=== PATIENT | female | born 1960 | race Caucasian/White ===

== ENCOUNTER → 2018-02-06 20:47 | Outpatient (CLI) | payer MEDICAID | END | disposition home or self-care (01) | LOC: D.MAMMO 01-24 14:00 | DX: Z12.31 Encounter for screening mammogram for malignant neoplasm of breast (principal) ==

== ENCOUNTER → 2018-03-06 18:12 | Outpatient (CLI) | payer MEDICAID | END | disposition home or self-care (01) | LOC: D.MAMMO 13:30 | DX: R92.8 Other abnormal and inconclusive findings on diagnostic imaging of breast (principal) ==

== ENCOUNTER → 2018-03-20 18:21 | Outpatient (CLI) | payer MEDICAID | END | disposition home or self-care (01) | LOC: D.MAMMO 08:00 | DX: R92.8 Other abnormal and inconclusive findings on diagnostic imaging of breast (principal) ==

== ENCOUNTER 2018-04-17 05:45 | Day surgery (SDC) | payer MEDICAID ==
[2018-04-16 10:00] LABS: BASOPHILS 0.6 % (0-2); EOSINOPHILS 1.2 % (0-7); HEMATOCRIT 45.8 % (36.0-48.0); HEMOGLOBIN 15.7 g/dL (12-16); IMMATURE GRANULOCYTES 0.3 % (0-5); LYMPHOCYTES 27.5 % (15-50); MCH 30.1 pg (26.0-34.0); MCHC 34.3 g/dL (31.0-37.0); MCV 87.7 fL (80.0-100.0); MEAN PLATELET VOLUME 9.2 fL (7.4-10.4); MONOCYTES 8.4 % (2-11); PLATELET COUNT 324 10x3/uL (130-400); RBC 5.22 10x6/uL (4.00-5.40); RDW 13.7 % (11.5-14.5); WBC 9.4 10x3/uL (4.8-10.8)
[2018-04-16 10:08] LABS: ANION GAP 11.1 mmol/L (8-16); CALCIUM 8.9 mg/dL (8.5-10.1); CARBON DIOXIDE 28.4 mmol/L (21.0-32.0); POTASSIUM - SERUM 3.5 mmol/L (3.5-5.1)
[2018-04-16 10:09] LABS: APTT 26.5 SECONDS (22.8-39.4); INR 0.96 (0.85-1.17); PROTIME 12.4 SECONDS (11.6-15.0)
[~2018-04-17] VITALS: Ht 162.6 cm; Wt 73.5 kg
--- NOTE | ~2018-04-17 | OP ---
PATIENT NAME: YASHIRA WORRELL MEDICAL RECORD: [id number] :60 LOCATION:D.OPS ADMISSION DATE: SURGEON: DANIEL WALLIS MD DATE OF OPERATION: 04/17/2018 PREOPERATIVE DIAGNOSES: 1. Ductal carcinoma in situ of the right breast. 2. Right breast cyst. 3. Chronic obstructive pulmonary disease. 4. Hypercholesterolemia. POSTOPERATIVE DIAGNOSES: 1. Ductal carcinoma in situ of the right breast. 2. Right breast cyst. 3. Chronic obstructive pulmonary disease. 4. Hypercholesterolemia. PROCEDURE: 1. Needle localized right lumpectomy. 2. [place] lymph node biopsy of the right axilla. SURGEON: Daniel Wallis MD REPORT OF PROCEDURE: Preoperatively, the patient underwent lymphoscintigraphy and needle localization for the mass in the right upper outer quadrant. The patient was then taken to the operating room and her right upper extremity, axilla, and right breast were all prepped and draped in sterile fashion. A skin incision was made in the superior lateral aspect of the fold of the breast on the right side. Electrocautery was used to dissect through the subcutaneous tissues. We ended eviscerating the wire through our incision site. We took out a large core tissue from the right upper outer quadrant, essentially performing a quadrantectomy. This was done because there were a couple of places of abnormality noted on her preoperative workup, which were concerning for possible DCIS and cystic lesions. Once we had the entire specimen removed, it was marked appropriately and sent off to radiology where they confirmed that the specimen appeared to be adequate. The area was inspected closely and any sign of any bleeding was treated with 3-0 Vicryl ties or electrocautery. We then inspected the axilla with the Neoprobe and were able to approach this through our current incision. We dissected down to the right axilla and once inside the axilla, we were able to find what appeared to be 2 or 3 enlarged lymph nodes and had high readings. The highest reading was approximately 275. Once we took these 2 lymph nodes out, then we inspected the rest of the axilla and there was no sign of any significant radiotracer uptake. We irrigated out both wounds with sterile water and assured there was no active bleeding. The subcutaneous tissues were then reapproximated with interrupted 3-0 Vicryl and the skin was closed with running subcutaneous 5-0 Monocryl. We then dressed the wound with Dermabond. COMPLICATIONS: None. CONDITION: Stable. ANESTHESIA: General endotracheal and local. BLOOD LOSS: 30 mL. OPERATIVE REPORT [id number] LEXMarioYASHIRAVAHE LAWSON TRANSINT:[id number] Voice Confirmation ID: [id number] DOCUMENT ID: [id number] DANIEL WALLIS MD at 1409 CC: KAYCEE NOLASCO [id number] DICTATION DATE: 04/17/18 1539 CORK PAINTER AND GRADER: 04/17/18 1551 [facility] [place] 04/17/18 [facility] [address] [place] [address]
[~2018-04-17 05:45] MED LIST: IPRAT-ALBUT 0.5-3 ML UPD; OMEPRAZOLE20 M1 PO; PEPCID AC20 MG PO; VENTOLIN HFA18 GM INH; ZOCOR20 MG PO; ZOFRAN4 MG PO
[2018-04-17 06:44] VITALS: BP 110/71; Ht 162.6 cm; Wt 73.5 kg
[2018-04-17] MEDS ORDERED: NORCO 10-325 TA1 TAB PO (15:34)
== END 2018-04-17 17:52 | disposition home or self-care (01) ==
LOC: D.OPS 05:45 → D.NM 07:30 → D.PAN 07:30 → D.OPS 07:30 → D.NM 09:00 → D.OPS 17:52
PROVIDERS: Anesthesiology; Surgery
DX: D05.81 Other specified type of carcinoma in situ of right breast (principal); N60.01 Solitary cyst of right breast; N60.21 Fibroadenosis of right breast; J44.9 Chronic obstructive pulmonary disease, unspecified; E78.00 Pure hypercholesterolemia, unspecified; Z01.812 Encounter for preprocedural laboratory examination

== ENCOUNTER 2018-11-11 10:30 | Outpatient (CLI) | payer MEDICAID ==
[~2018-11-11 10:30] MED LIST changes: +NORCO 10-325 TA1 TAB PO
== END 2018-11-11 11:00 | disposition home or self-care (01) ==
LOC: D.MAMMO 10:30
DX: Z85.3 Personal history of malignant neoplasm of breast (principal)

== ENCOUNTER 2019-02-10 13:00 | Outpatient (CLI) | payer MEDICAID ==
[2018-04-17 06:44] VITALS: BMI 27.8
== END 2019-02-10 13:30 | disposition home or self-care (01) ==
LOC: D.MAMMO 13:00
PROVIDERS: ATTEND Surgery
DX: N60.01 Solitary cyst of right breast (principal); D05.11 Intraductal carcinoma in situ of right breast

== ENCOUNTER 2019-05-20 08:15 | Inpatient (IN) | payer MEDICAID ==
[2019-05-20] VITALS (7 sets, daily range): BP systolic 100–139; BP diastolic 48–78; Ht 162.6 cm; Wt 72.7 kg
[~2019-05-20] VITALS: Ht 162.6 cm; Wt 72.7 kg
[2019-05-20] MEDS ORDERED: TAMOXIFEN CITRA20 MG PO (08:22)
[2019-05-20] MEDS ORDERED: ZOCOR80 MG PO (08:22)
[2019-05-20] MEDS ORDERED: BAYER CHEWABLE81 MG PO (08:34)
[2019-05-20 08:47] LABS: BASOPHILS 0.5 % (0-2); EOSINOPHILS 2.7 % (0-7); HEMATOCRIT 42.3 % (36.0-48.0); HEMOGLOBIN 13.9 g/dL (12-16); IMMATURE GRANULOCYTES 0.1 % (0-5); LYMPHOCYTES 18.5 % (15-50); MCH 29.7 pg (26.0-34.0); MCHC 32.9 g/dL (31.0-37.0); MCV 90.4 fL (80.0-100.0); MEAN PLATELET VOLUME 8.6 fL (7.4-10.4); MONOCYTES 9.1 % (2-11); NEUTROPHILS 69.1 % (40-80); RBC 4.68 10x6/uL (4.00-5.40); RDW 13.4 % (11.5-14.5); WBC 8.4 10x3/uL (4.8-10.8)
[2019-05-20 08:56] LABS: APTT 24.9 SECONDS (22.8-39.4); INR 1.01 (0.85-1.17); PROTIME 12.8 SECONDS (11.6-15.0)
[2019-05-20 08:57] LABS: CALC OSMOLALITY 270 mosm/kg (275-300); CALCIUM 8.3 mg/dL (8.5-10.1); CARBON DIOXIDE 26.2 mmol/L (21.0-32.0); CHLORIDE - SERUM 101 mmol/L (98-107); CREATININE - SERUM 0.8 mg/dL (0.6-1.3); GLUCOSE 125 mg/dL (74-106); POTASSIUM - SERUM 3.8 mmol/L (3.5-5.1); SODIUM 136 mmol/L (136-145); UREA NITROGEN 8 mg/dL (7-18); eGFR NON AFRICAN AMERICAN 78 mL/min (90-120)
[2019-05-20 09:03] LABS: PLATELET COUNT 246 10x3/uL (130-400)
[2019-05-20 09:14] LABS: ALBUMIN 3.5 g/dL (3.4-5.0); ALKALINE PHOSPHATASE 60 U/L (46-116); ALT (SGPT) 37 U/L (10-68); BILIRUBIN - TOTAL 0.91 mg/dL (0.2-1.3); CKMB 2.2 U/L (0.0-3.6); CREATINE KINASE 109 UL (21-215); PRO BNP 57 pg/mL (0-125); PROTEIN - SERUM 7.4 g/dL (6.4-8.2); TROPONIN-I < 0.017 ng/mL (0.000-0.060)
--- NOTE | 2019-05-20 09:27 | NUR ---
AMB PT TO BR. PT BECAME VERY DYSPNIC AND SATS DROPPED TO 84-86% ON RA. RTND TO ROOM AND PLACED ON 2 L PNC AND PT QUICKLY IMPROVED TO 95 %
--- NOTE | 2019-05-20 10:28 | NUR ---
REPORT CALLED TO CHAR MARTINEZ
--- NOTE | 2019-05-20 10:45 | NUR ---
TRANSPORTED TO ROOM #1207, CONDITION STABLE
--- NOTE | 2019-05-20 10:50 | NUR ---
RECEIVED PT TO ROOM 1207 VIA STRETCHER, PT WAS ABLE TO AMBULATE FROM STRETCHER TO BED WITH STEADY GATE. PT DENIES ANY NEEDS OR DISCOMFORTS AT THIS TIME. ORIENTED PT TO ROOM AND CALL LIGHT, WILL ASSESS PT AND START PLAN OF CARE.
[2019-05-20] MEDS ORDERED: PROTONIX40 MG PO (10:55)
--- NOTE | 2019-05-20 14:47 | NUR ---
CALLED DR. NOLASCO'S OFFICE REGARDING PT HOME MEDS. WAITING ON THEM TO CALL BACK WITH ORDERS.
--- NOTE | 2019-05-20 16:15 | NUR ---
PER DR. CONSTANCE MCKEON TO START HOME MEDICATIONS.
--- NOTE | 2019-05-20 16:30 | NUR ---
FIRST UNIT OF PRBCS DONE INFUSING, VITAL SIGNS STABLE, GAVE 20MG OF LASIX. 1644- SECOND UNIT OF PRBC STARTED INFUSING. PT DENIES ANY NEEDS AT THIS TIME. CALL LIGHT IN REACH, NAD NOTED, WILL CONTINUE TO MONITOR.
--- NOTE | 2019-05-20 19:25 | NUR ---
PT SITTING UP IN BED ON PHONE. DENIES NEEDS AT THIS TIME. BED IN LOW SIDE RAILS X2. CL IN REACH. A/O X4. LUNGS DIMINISHED. BOWEL ACTIVE X4. RESP EVEN AND UNLABORED. PRODUCTIVE COUGH WITH YELLOW SPUTUM. PT ON 2L OF O2 VIA NC. WILL CONTINUE TO MONITOR.
--- NOTE | 2019-05-20 21:36 | MORECARE ---
CASE MANAGEMENT DISCHARGE SUMMARY PATIENT: YASHIRA WORRELL RENNY UNIT: [id number] ADM DATE: 05/20/19 AGE: 58 : 60 SEX: F ROOM/BED: D.1207 AUTHOR: LANEY,DOC PHYSICIAN: REFERRING PHYSICIAN: KAYCEE NOLASCO MD DATE OF SERVICE: 05/20/19 Discharge Plan Patient Name: YASHIRA WORRELL Facility: [facility]:[place] : 1960 Planned Disposition: Home Anticipated Discharge Date: Discharge Date: Expected LOS: Initial Reviewer: [id number] Initial Review Date: 05/20/2019 Generated: 05/20/19 10:36 pm Comments DCP- Discharge Planning Updated by [id number]: Emili Swain on 05/20/19 8:[address] Patient Name: YASHIRA WORRELL Admission Status: Elective Accout number: [id number] Admission Date: 05-20-2019 : 1960 Admission Diagnosis: Attending: KAYCEE NOLASCO Current LOS: 1 Anticipated DC Date: Planned Disposition: Home Primary Insurance: MEDICAID [place] Discharge Planning Comments: CM met with patient to complete initial dc planning assessment. CM educated patient on the CM role and verbal consent given by patient to complete assessment. Patient lives at home with her elderly parents where she is independent with her care and cares for her parents. At discharge patient plans to return home and feels this is a safe discharge. CM discussed availability of home health, rehab services, and medical equipment. Patient needs nebulizer she states she has been using her father's and it has stopped working. [facility] signed for [employer]. Patient denied known discharge needs at this time. CM will continue to follow and will assist as needed with dc plans/needs. Regulatory Technician: Emili Swain DCPIA - Discharge Planning Initial Assessment Updated by [email or web address]: Emili Swain on 05/20/19 9:32 pm * Is the patient Alert and Oriented? Yes * How many steps to enter\exit or inside your home? * PCP CONSTANCE * [facility] [address] * Preadmission Environment Home with Family * ADLs Independent * Equipment None * List name and contact numbers for known caregivers / representatives who currently or will assist patient after discharge: DEEJAY HERNANDEZ - MOTHER- [phone] * Verbal permission to speak to the caregivers and representatives has been obtained from the patient. Yes * Community resources currently utilized None * Additional services required to return to the preadmission environment? No * Can the patient safely return to the preadmission environment? Yes * Has this patient been hospitalized within the prior 30 days at any hospital? No Coverage Notice Reviewer: [email or web address] Genevieve Swain Notice Issued Date-Time: 05/20/2019 17:00 Notice Type: Patient Choice Letter Notice Delivered To: Patient Relationship to Patient: Self Vessel Scrapper Helper Name: Delivery Method: HAND - Hand Delivered Thania Days: Prior Verbal Notification: Recipient Understood Notice: Yes Recipient Signature: Yes Med Rec Note Co-signed by Attending: Coverage Notice Comment: Patient Name: YASHIRA WORRELL Page [phone] at 2136 All edits/amendments must be made on the electronic document DICTATION DATE: 05/20/192135 VESSEL SCRAPPER HELPER: DREA 05/20/192135 RPT#: [id number] DC DATE: STATUS: ADM IN [facility] [address] [place] [address] END OF REPORT
[2019-05-21 01:17] VITALS: BP 113/65
--- NOTE | 2019-05-21 04:42 | NUR ---
I have reviewed this patient and I concur with the Shift Assessment completed by the Licensed Practical Nurse today this shift.
[2019-05-21 04:50] VITALS: BP 98/51
[2019-05-21 08:55] VITALS: BP 106/64
--- NOTE | 2019-05-21 13:58 | NUR ---
PT RESTING IN BED WITH EYES OPEN CALL LIGHT IN REACH NO PROBLEMS WILL MONITER
--- NOTE | 2019-05-21 17:20 | NUR ---
PT RESTING IN BED WITH EYES OPEN EATING SUPPER TOLERATING WELL NO PROBLEMS WILL MONITER
[2019-05-21 19:30] VITALS: BP 121/59
--- NOTE | 2019-05-21 19:43 | NUR ---
PT SITTING ON SIDE OF BED. CL IN REACH. DENIES NEEDS AT THIS TIME. BED IN LOW SIDE RAILS X2. LUNGS CLEAR. BOWEL ACTIVE X4. A/O X4. RESP EVEN AND UNLABORED. PT IS NOT WEARING O2 AT THIS TIME BUT IS AT BEDSIDE INCASE PT NEEDS TO PUT IT ON. PULSE OX AT BEDSIDE WELL PT EDUCATED TO MONITOR OXYGEN SATURATIONS. PT IS AWARE OF THIS AND HAS BEEN CHECKING IT EVERY TIME SHE GETS UP OR IS SOB. WILL CONTINUE TO MONITOR.
[2019-05-22 00:10] VITALS: BP 95/56
--- NOTE | 2019-05-22 02:43 | NUR ---
I have reviewed this patient and I concur with the Shift Assessment completed by the Licensed Practical Nurse today this shift.
[2019-05-22 04:36] VITALS: BP 106/62
--- NOTE | 2019-05-22 07:40 | NUR ---
PT RESTING IN BED, LUCAS NEEDS. WCTM.
[2019-05-22] MEDS ORDERED: NICODERM C1 PATCH .1 TRANSDERM (08:20)
[2019-05-22] MEDS ORDERED: MEDROL DOSE PACK4 MG PO (08:21)
[2019-05-22] MEDS ORDERED: LEVAQUIN750 MG PO (08:21)
[2019-05-22 10:10] VITALS: BP 102/59
--- NOTE | 2019-05-22 10:39 | NUR ---
UPON ADMIT, PATIENT HAS NOT HAD A FLU SHOT, WHEN QUESTIONED SHE REFUSED ONE.
--- NOTE | 2019-05-22 11:10 | MORECARE ---
CASE MANAGEMENT DISCHARGE SUMMARY PATIENT: YASHIRA WORRELL RENNY UNIT: [id number] ADM DATE: 05/20/19 AGE: 58 : 60 SEX: F ROOM/BED: D.1207 AUTHOR: LANEY,DOC PHYSICIAN: REFERRING PHYSICIAN: KAYCEE NOLASCO MD DATE OF SERVICE: 05/22/19 Discharge Plan Patient Name: YASHIRA WORRELL Facility: [facility]:[place] : 1960 Planned Disposition: Home Anticipated Discharge Date: Discharge Date: Expected LOS: Initial Reviewer: [id number] Initial Review Date: 05/20/2019 Generated: 05/22/19 12:09 pm Comments DCP- Discharge Planning Updated by [id number]: Emili Swain on 05/20/19 8:[address] Patient Name: YASHIRA WORRELL Admission Status: Elective Accout number: [id number] Admission Date: 05-20-2019 : 1960 Admission Diagnosis: Attending: KAYCEE NOLASCO Current LOS: 1 Anticipated DC Date: Planned Disposition: Home Primary Insurance: MEDICAID [place] Discharge Planning Comments: CM met with patient to complete initial dc planning assessment. CM educated patient on the CM role and verbal consent given by patient to complete assessment. Patient lives at home with her elderly parents where she is independent with her care and cares for her parents. At discharge patient plans to return home and feels this is a safe discharge. CM discussed availability of home health, rehab services, and medical equipment. Patient needs nebulizer she states she has been using her father's and it has stopped working. [facility] signed for [employer]. Patient denied known discharge needs at this time. CM will continue to follow and will assist as needed with dc plans/needs. Motor Equipment Commanding Officer: Emili Swain DCPIA - Discharge Planning Initial Assessment Updated by [email or web address]: Emili Swain on 05/20/19 9:32 pm * Is the patient Alert and Oriented? Yes * How many steps to enter\exit or inside your home? * PCP CONSTANCE * [facility] * Preadmission Environment Home with Family * ADLs Independent * Equipment None * List name and contact numbers for known caregivers / representatives who currently or will assist patient after discharge: DEEJAY HERNANDEZ - MOTHER- [phone] * Verbal permission to speak to the caregivers and representatives has been obtained from the patient. Yes * Community resources currently utilized None * Additional services required to return to the preadmission environment? No * Can the patient safely return to the preadmission environment? Yes * Has this patient been hospitalized within the prior 30 days at any hospital? No External Providers External Provider: CHRISTOPHERBogdan Next Contact Date: Service Request Date: Service Type: Resolution: Reviewer: Comments: Coverage Notice Reviewer: [email or web address] Genevieve Swain Notice Issued Date-Time: 05/20/2019 17:00 Notice Type: Patient Choice Letter Notice Delivered To: Patient Relationship to Patient: Self Dog Licenser Name: Delivery Method: HAND - Hand Delivered Thania Days: Prior Verbal Notification: Recipient Understood Notice: Yes Recipient Signature: Yes Med Rec Note Co-signed by Attending: Coverage Notice Comment: signed for DME Last DP export: 05/20/19 8:36 p Patient Name: YASHIRA WORRELL Page [phone] at 1110 All edits/amendments must be made on the electronic document DICTATION DATE: 05/22/191108 BREAKER MACHINE OPERATOR: DREA 05/22/19 110 RPT#: [id number] DC DATE: STATUS: ADM IN [facility] [address] [place] [address] END OF REPORT
--- NOTE | 2019-05-22 12:11 | MORECARE ---
CASE MANAGEMENT DISCHARGE SUMMARY PATIENT: YASHIRA WORRELL RENNY UNIT: [id number] ADM DATE: 05/20/19 AGE: 58 : 60 SEX: F ROOM/BED: D.1207 AUTHOR: LANEY,DOC PHYSICIAN: REFERRING PHYSICIAN: KAYCEE NOLASCO MD DATE OF SERVICE: 05/22/19 Discharge Plan Patient Name: YASHIRA WORRELL Facility: [facility]:[place] : 1960 Planned Disposition: Home Anticipated Discharge Date: Discharge Date: Expected LOS: Initial Reviewer: [email or web address] Initial Review Date: 05/20/2019 Generated: 05/22/19 1:10 pm Comments DCP- Discharge Planning Updated by [id number]: Emili Swain on 05/20/19 8:[address] Patient Name: YASHIRA WORRELL Admission Status: Elective Accout number: [id number] Admission Date: 05-20-2019 : 1960 Admission Diagnosis: Attending: KAYCEE NOLASCO Current LOS: 1 Anticipated DC Date: Planned Disposition: Home Primary Insurance: MEDICAID [place] Discharge Planning Comments: CM met with patient to complete initial dc planning assessment. CM educated patient on the CM role and verbal consent given by patient to complete assessment. Patient lives at home with her elderly parents where she is independent with her care and cares for her parents. At discharge patient plans to return home and feels this is a safe discharge. CM discussed availability of home health, rehab services, and medical equipment. Patient needs nebulizer she states she has been using her father's and it has stopped working. [facility] signed for [employer]. Patient denied known discharge needs at this time. CM will continue to follow and will assist as needed with dc plans/needs. Continuous Improvement Engineer: Emili Swain DCPIA - Discharge Planning Initial Assessment Updated by [id number]: Emili Swain on 05/20/19 9:32 pm * Is the patient Alert and Oriented? Yes * How many steps to enter\exit or inside your home? * PCP CONSTANCE * [facility] [address] * Preadmission Environment Home with Family * ADLs Independent * Equipment None * List name and contact numbers for known caregivers / representatives who currently or will assist patient after discharge: DEEJAY HERNANDEZ - MOTHER- [phone] * Verbal permission to speak to the caregivers and representatives has been obtained from the patient. Yes * Community resources currently utilized None * Additional services required to return to the preadmission environment? No * Can the patient safely return to the preadmission environment? Yes * Has this patient been hospitalized within the prior 30 days at any hospital? No External Providers External Provider: [facility] Next Contact Date: Service Request Date: Service Type: Resolution: Reviewer: Comments: Coverage Notice Reviewer: [id number] Genevieve Swain Notice Issued Date-Time: 05/20/2019 17:00 Notice Type: Patient Choice Letter Notice Delivered To: Patient Relationship to Patient: Self Ship Engines Operating Engineer Name: Delivery Method: HAND - Hand Delivered Thania Days: Prior Verbal Notification: Recipient Understood Notice: Yes Recipient Signature: Yes Med Rec Note Co-signed by Attending: Coverage Notice Comment: signed for DME Last DP export: 05/22/19 10:10 a Patient Name: YASHIRA WORRELL Page [phone] at 1211 All edits/amendments must be made on the electronic document DICTATION DATE: 05/22/19 1210 CAP JEWEL PLATE ASSEMBLER: DREA 05/22/19 1210 RPT#: [id number] DC DATE: STATUS: ADM IN [facility] [address] [place] [address] END OF REPORT
--- NOTE | 2019-05-22 13:26 | NUR ---
PT DISCHARGE INSTRUCTINOS REV'D AND PT STATES UNDERSTANDING. PT ESCORTED OUT VIA WHEELCHAIR BY HOSPITAL STAFF. PT'S MOTHER HERE TO PICK PT UP.
--- NOTE | 2019-05-22 20:49 | MORECARE ---
CASE MANAGEMENT DISCHARGE SUMMARY PATIENT: YASHIRA WORRELL RENNY UNIT: [id number] ADM DATE: 05/20/19 AGE: 58 : 60 SEX: F ROOM/BED: D.1207 AUTHOR: LANEYDOC PHYSICIAN: REFERRING PHYSICIAN: KAYCEE NOLASCO MD DATE OF SERVICE: 05/22/19 Discharge Plan Patient Name: YASHIRA WORRELL Facility: [facility]:[place] : 1960 Planned Disposition: Home Anticipated Discharge Date: Discharge Date: 05/22/2019 Expected LOS: Initial Reviewer: [email or web address] Initial Review Date: 05/20/2019 Generated: 05/22/19 9:49 pm Comments DCP- Discharge Planning Updated by [id number]: Emili Swain on 05/22/19 7:[address] Patient Name: YASHIRA WORRELL Encounter No: [id number] : 1960 Primary Insurance: MEDICAID [place] Anticipated DC Date: Planned Disposition: Home External Planned Provider: : CM attempted to set patient up with Nebulizer @ [facility] but they didn't bill Medicaid. CM spoke with patient and she agreed to try any DME that will accept her Medicaid. [facility] accepted patient insurance and delivered Nebulizer to room. DCP follow-up note: Patient and family in agreement with discharge plan. No changes to plan. Case management will follow and assist as needed. Emili Swain DCP- Discharge Planning Updated by [email or web address]: Emili Swain on 05/20/19 8:[address] Patient Name: YASHIRA WORRELL Admission Status: Elective Accout number: [id number] Admission Date: 05-20-2019 : 1960 Admission Diagnosis: Attending: KAYCEE NOLASCO Current LOS: 1 Anticipated DC Date: Planned Disposition: Home Primary Insurance: MEDICAID [place] Discharge Planning Comments: CM met with patient to complete initial dc planning assessment. CM educated patient on the CM role and verbal consent given by patient to complete assessment. Patient lives at home with her elderly parents where she is independent with her care and cares for her parents. At discharge patient plans to return home and feels this is a safe discharge. CM discussed availability of home health, rehab services, and medical equipment. Patient needs nebulizer she states she has been using her father's and it has stopped working. [facility] signed for [facility]. Patient denied known discharge needs at this time. CM will continue to follow and will assist as needed with dc plans/needs. Rodent Exterminator: Emili Swain DCPIA - Discharge Planning Initial Assessment Updated by [email or web address]: Emili Swain on 05/20/19 9:32 pm * Is the patient Alert and Oriented? Yes * How many steps to enter\exit or inside your home? * PCP CONSTANCE * [facility] * Preadmission Environment Home with Family * ADLs Independent * Equipment None * List name and contact numbers for known caregivers / representatives who currently or will assist patient after discharge: DEEJAY HERNANDEZ - MOTHER- [phone] * Verbal permission to speak to the caregivers and representatives has been obtained from the patient. Yes * Community resources currently utilized None * Additional services required to return to the preadmission environment? No * Can the patient safely return to the preadmission environment? Yes * Has this patient been hospitalized within the prior 30 days at any hospital? No Coverage Notice Reviewer: [id number] - Emili Swain Notice Issued Date-Time: 05/20/2019 17:00 Notice Type: Patient Choice Letter Notice Delivered To: Patient Relationship to Patient: Self Sludge Filtration Operator Name: Delivery Method: HAND - Hand Delivered Thania Days: Prior Verbal Notification: Recipient Understood Notice: Yes Recipient Signature: Yes Med Rec Note Co-signed by Attending: Coverage Notice Comment: signed for DME Last DP export: 05/22/19 11:11 a Patient Name: YASHIRA WORRELL Page [phone] at 204 All edits/amendments must be made on the electronic document DICTATION DATE: 05/22/192048 LIGHTING DESIGNER: DREA 05/22/192048 RPT#: [id number] DC DATE:05/22/19 STATUS: DIS IN [facility] [address] [place] [address] END OF REPORT
== END 2019-05-22 13:27 | disposition home or self-care (01) | DRG 192 ==
LOC: D.ER 08:15 → D.M3 09:36
PROVIDERS: Emergency Medicine; ADMIT Family Medicine; ATTEND Family Medicine
DX: J44.1 Chronic obstructive pulmonary disease with (acute) exacerbation (principal); Z72.0 Tobacco use

== ENCOUNTER 2019-08-06 09:00 | Outpatient (CLI) | payer MEDICAID ==
[2019-05-20 18:57] VITALS: BMI 27.5
[~2019-08-06 09:00] MED LIST changes: +BAYER CHEWABLE81 MG PO; +LEVAQUIN750 MG PO; +MEDROL DOSE PACK4 MG PO; +NICODERM C1 PATCH .1 TRANSDERM; +PROTONIX40 MG PO; +TAMOXIFEN CITRA20 MG PO; +ZOCOR80 MG PO
== END 2019-08-06 10:00 | disposition home or self-care (01) ==
LOC: D.MAMMO 09:00
PROVIDERS: ATTEND Surgery
DX: N64.9 Disorder of breast, unspecified (principal); Z85.3 Personal history of malignant neoplasm of breast

== ENCOUNTER → 2019-09-16 07:41 | Outpatient (CLI) | payer MEDICAID ==
[2019-05-20 18:57] VITALS: BMI 27.5
== END | disposition home or self-care (01) ==
LOC: D.RT 07:41
PROVIDERS: ATTEND Internal Medicine Pulmonary Disease
DX: J44.9 Chronic obstructive pulmonary disease, unspecified (principal)

== ENCOUNTER → 2019-12-21 09:51 | Outpatient (CLI) | payer MEDICAID ==
[2019-05-20 18:57] VITALS: BMI 27.5
== END | disposition home or self-care (01) ==
LOC: D.RT 11-23 11:30
PROVIDERS: ATTEND Internal Medicine Pulmonary Disease
DX: J44.9 Chronic obstructive pulmonary disease, unspecified (principal)

== ENCOUNTER → 2019-12-24 12:23 | Outpatient (CLI) | payer MEDICAID ==
[2019-05-20 18:57] VITALS: BMI 27.5
== END | disposition home or self-care (01) ==
LOC: D.RT 12:23
PROVIDERS: ATTEND Internal Medicine Pulmonary Disease
DX: J44.9 Chronic obstructive pulmonary disease, unspecified (principal)

== ENCOUNTER → 2020-01-11 09:17 | Outpatient (CLI) | payer MEDICAID ==
[2019-05-20 18:57] VITALS: BMI 27.5
== END | disposition home or self-care (01) ==
LOC: D.CT 09:17
PROVIDERS: ATTEND Internal Medicine Pulmonary Disease
DX: R06.09 Other forms of dyspnea (principal)

== ENCOUNTER 2020-02-01 09:50 | Outpatient (CLI) | payer MEDICAID ==
[~2020-02-01] VITALS: Ht 162.6 cm; Wt 81.8 kg
[2020-02-01 10:17] LABS: ANION GAP 7.9 mmol/L (8-16); CARBON DIOXIDE 31.7 mmol/L (21.0-32.0); CREATININE - SERUM 0.9 mg/dL (0.6-1.3); POTASSIUM - SERUM 3.6 mmol/L (3.5-5.1)
[2020-02-01 10:18] LABS: BASOPHILS 0.2 % (0-2); HEMATOCRIT 40.9 % (36.0-48.0); HEMOGLOBIN 13.1 g/dL (12-16); IMMATURE GRANULOCYTES 0.3 % (0-5); LYMPHOCYTES 22.8 % (15-50); MCH 28.8 pg (26.0-34.0); MCV 89.9 fL (80.0-100.0); MEAN PLATELET VOLUME 8.6 fL (7.4-10.4); MONOCYTES 7.5 % (2-11); NEUTROPHILS 68.2 % (40-80); RBC 4.55 10x6/uL (4.00-5.40); RDW 13.8 % (11.5-14.5); WBC 14.6 10x3/uL (4.8-10.8)
[2020-02-01 10:22] LABS: PLATELET COUNT 338 10x3/uL (130-400)
[2020-02-01 10:38] LABS: APTT 23.1 SECONDS (22.8-39.4)
--- NOTE | 2020-02-01 10:38 | NUR ---
1037 SPOKE WITH BOTH CHAR SOLIZ AND YAZ GOLDSMITHRN ABOUT PT'S ELEVATED WBN 14.6. PT REPORTS HAVING BURNING WITH URINATION AND ALSO PT HAS A RED SPOT ON LEFT WRIST THAT WAS CAUSED BY A CAT SCRATCH. LEFT WRIST HAS A SMALL RAISED SORE THAT IS RED. PT STATES SHE PRESSED SOME "PUS" OUT OF IT THIS MORNING. PT HAS BEEN ON PREDNISONE FOR 8 DAYS FOR BREATHING ISSUE PRESCRIBED BY DR COPELAND AND SHE FINISHED HER LAST DOSE YESTERDAY. THIS INFORMATION WAS PASSED ON TO YAZ GOLDSMITH RN. HE STATES THAT HE WILL LET DR WISDOM KNOW OF THE ABOVE INFORMATION.
[2020-02-01 10:43] LABS: INR 0.98 (0.85-1.17); PROTIME 12.9 SECONDS (11.6-15.0)
[2020-02-01] MEDS ORDERED: PREDNISONE20 MG PO (11:07)
[2020-02-01 11:18] VITALS: Ht 162.6 cm; Wt 81.8 kg
--- NOTE | 2020-02-01 13:20 | NUR ---
1308 A 12 LEAD EKG COMPLETED. GIVEN TO YAZ GOLDSMITH RN TO HAVE DR WISDOM TO REVIEW. BLOOD DRAWN FOR TROPIN LEVEL. PT C/O SEVERE LEFT UPPER CHEST PAIN AND LEFT UPPER BACK PAIN. PT DESCRIBES PAIN CRUSHING IN HER CHEST AND THAT SHE IS HAVING A HARD TIME BREATHING EVEN WITH AN OXYGEN SATURATION OF 100% CURRENTLY. VSS
[2020-02-01 13:42] LABS: CKMB 2.2 U/L (0.0-3.6); CREATINE KINASE 81 UL (21-215)
[2020-02-01 13:43] LABS: TROPONIN-I < 0.017 ng/mL (0.000-0.060)
--- NOTE | 2020-02-01 15:23 | NUR ---
1520 ROUNDS BY YAZ GOLDSMITH RN. OKAYS RELEASE AT 1600L PT AGREES SHE IS BETTER. PT. CALLS HER RIDE AND GIVES THEM THE DISCHARGE TIME.
== END 2020-02-01 16:15 | disposition home or self-care (01) ==
LOC: D.SP 09:50 → D.CT 11:00 → D.SP 16:15
PROVIDERS: Radiology Diagnostic Radiology; ATTEND Internal Medicine Pulmonary Disease
DX: R91.1 Solitary pulmonary nodule (principal); J44.9 Chronic obstructive pulmonary disease, unspecified; Z87.891 Personal history of nicotine dependence; R06.09 Other forms of dyspnea; E78.5 Hyperlipidemia, unspecified; Z85.41 Personal history of malignant neoplasm of cervix uteri; Z85.3 Personal history of malignant neoplasm of breast; K21.9 Gastro-esophageal reflux disease without esophagitis; J30.9 Allergic rhinitis, unspecified

== ENCOUNTER 2020-02-04 14:15 | Emergency (ER) | payer MEDICAID ==
[~2020-02-04] VITALS: Ht 162.6 cm; Wt 83.2 kg
[~2020-02-04 14:15] MED LIST changes: +PREDNISONE20 MG PO
[2020-02-04 14:35] VITALS: BP 129/70; Ht 162.6 cm; Wt 83.2 kg
[2020-02-04 14:58] LABS: BILIRUBIN NEGATIVE (NEGATIVE); GLUCOSE NEGATIVE (NEGATIVE); KETONE NEGATIVE (NEGATIVE); NITRITE NEGATIVE (NEGATIVE); SPECIFIC GRAVITY 1.005 (1.005-1.020); UROBILINOGEN NORMAL (NORMAL)
[2020-02-04] MEDS ORDERED: CORTISPORIN OIN15 GM TOPICAL (15:41)
== END 2020-02-04 16:02 | disposition home or self-care (01) ==
LOC: D.ER 14:15
PROVIDERS: Family Medicine
DX: S21.012A Laceration without foreign body of left breast, initial encounter (principal); J44.9 Chronic obstructive pulmonary disease, unspecified; Z99.81 Dependence on supplemental oxygen

== ENCOUNTER → 2020-03-30 18:00 | Outpatient (CLI) | payer MEDICAID ==
[2020-02-04 14:35] VITALS: BMI 31.5
[~2020-03-30 18:00] MED LIST changes: +CORTISPORIN OIN15 GM TOPICAL
== END | disposition home or self-care (01) ==
LOC: D.MAMMO 09:30
PROVIDERS: ATTEND Surgery
DX: N60.01 Solitary cyst of right breast (principal)

== ENCOUNTER 2020-10-03 06:28 | Day surgery (SDC) | payer MEDICAID ==
[~2020-10-03] VITALS: Ht 162.6 cm; Wt 90.9 kg
[2020-10-03 06:57] LABS: ANION GAP 9.6 mmol/L (8-16); CALCIUM 9.1 mg/dL (8.5-10.1); CARBON DIOXIDE 31.5 mmol/L (21.0-32.0); POTASSIUM - SERUM 4.1 mmol/L (3.5-5.1)
[2020-10-03] MEDS ORDERED: LIPITOR20 MG PO (07:10)
[2020-10-03] MEDS ORDERED: ADVAIR 250-501 EAC1 INH (07:11)
[2020-10-03 07:16] VITALS: BP 127/69; Ht 162.6 cm; Wt 90.9 kg
[2020-10-03 07:24] LABS: HEMATOCRIT 38.9 % (36.0-48.0); HEMOGLOBIN 12.6 g/dL (12-16); MCH 28.5 pg (26.0-34.0); MCHC 32.4 g/dL (31.0-37.0); MEAN PLATELET VOLUME 8.5 fL (7.4-10.4); RBC 4.42 10x6/uL (4.00-5.40); WBC 7.4 10x3/uL (4.8-10.8)
--- NOTE | 2020-10-03 09:25 | NUR ---
0846 IV DC'D. CATHETER TIP INTACT. NO BLEEDING AT SITE AFTER HOLDING PRESSURE. COBAN DRESSING APPLIED. 0850 REVIEWED DISCHARGE INSTRUCTIONS WITH PATIENT WHO VOICES UNDERSTANDING OF THESE INSTRUCTIONS.
--- NOTE | 2020-10-05 07:53 | OP ---
PATIENT NAME: YASHIRA WORRELL MEDICAL RECORD: [id number] :60 [facility] ADMISSION DATE: SURGEON: SCOT JUSTIN DO DATE OF OPERATION: 10/03/2020 PROCEDURE: EGD with biopsies. INDICATION FOR PROCEDURE: Epigastric pain, dysphagia, heartburn, personal history of breast cancer, nausea. SCOPE: Olympus video gastroscope. MEDICATIONS: Propofol 200 mg IV per anesthesia. ESTIMATED BLOOD LOSS: Minimal. COMPLICATIONS: None. FINDINGS: Informed consent was given. The patient was made comfortable with the above medication. After reaching an adequate level of sedation by slow IV push, the patient was placed on her left side. The endoscope was advanced under direct visualization through the mouth to the second portion of the duodenum with ease. In the upper esophagus, there was some heterotopic gastric mucosa present consistent with an inlet patch. Appearances were normal. The esophagus appeared normal down to the GE junction. Cold forceps biopsies were taken from the mid esophagus to rule out the presence of eosinophils in light of the patient's dysphagia. At the GE junction, there was evidence of [place] class A reflux-induced esophagitis and some mild stenosis. A CRE dilating balloon was placed through the working channel of the endoscope and the GE junction was dilated up to 18 mm in maximum diameter. The endoscope was advanced beyond the GE junction into the stomach and retroflexed to view the cardia and fundus. There was a small sliding hiatal hernia. The mucosa throughout the stomach appeared normal. Cold forceps biopsies were taken from the antrum and incisura to submit for histopathology and to rule out the presence of H. pylori. The endoscope was advanced beyond the pylorus into the duodenum, which appeared normal to the second portion. Cold forceps biopsies were taken randomly from the duodenum to submit for histopathology. The endoscope was withdrawn from the patient. The patient tolerated the procedure well and there were no complications. IMPRESSIONS: 1. Heterotopic gastric mucosa in the upper esophagus consistent with a benign-appearing inlet patch. 2. [place] class A reflux-induced esophagitis. 3. Mild esophageal stenosis located at the GE junction, status post dilation to 18 mm. 4. Small sliding hiatal hernia. PLAN AND RECOMMENDATIONS: 1. Discharge home when recovery parameters are met. 2. Follow up biopsy specimen results. 3. GERD diet reflux precautions. 4. Continue current medications. 5. Omeprazole 40 mg daily times 60 days. 6. After 60 days, consider famotidine 20 mg daily indefinitely for symptoms if OPERATIVE REPORT [id number] YASHIRA WORRELL antacid therapy helps. 7. We will follow up biopsy results. 8. If dysphagia continues, consider a manometry study to rule out esophageal dysmotility. 9. Follow up in GI clinic in 6-8 weeks. TRANSINT:[id number] Voice Confirmation ID: [id number] DOCUMENT ID: [id number] SCOT JUSTIN DO at 0753 CC: [id number] DICTATION DATE: 10/03/20818 [place] DIPPER: 10/03/20 0844 [facility] 10/03/20 [id number] [place] [address]
== END 2020-10-03 08:54 | disposition home or self-care (01) ==
LOC: D.OPS 06:28
PROVIDERS: Anesthesiology; ATTEND Internal Medicine Gastroenterology
DX: R10.13 Epigastric pain (principal); R13.10 Dysphagia, unspecified; Z85.3 Personal history of malignant neoplasm of breast; R11.0 Nausea; K12.30 Oral mucositis (ulcerative), unspecified; K21.00 Gastro-esophageal reflux disease with esophagitis, without bleeding; K22.2 Esophageal obstruction; K44.9 Diaphragmatic hernia without obstruction or gangrene; Z80.0 Family history of malignant neoplasm of digestive organs; Z86.010 Personal history of colon polyps; R19.4 Change in bowel habit

== ENCOUNTER 2020-11-21 07:14 | Day surgery (SDC) | payer MEDICAID ==
[~2020-11-21] VITALS: Ht 162.6 cm; Wt 95.9 kg
[~2020-11-21 07:14] MED LIST changes: +ADVAIR 250-501 EAC1 INH; +LIPITOR20 MG PO
[2020-11-21 07:48] LABS: BASOPHILS 0.4 % (0-2); EOSINOPHILS 3.2 % (0-7); HEMATOCRIT 35.6 % (36.0-48.0); HEMOGLOBIN 11.6 g/dL (12-16); IMMATURE GRANULOCYTES 0.1 % (0-5); LYMPHOCYTE ABS# 1.59 10x3/uL (1.18-3.74); LYMPHOCYTES 23.5 % (15-50); MCH 28.9 pg (26.0-34.0); MCHC 32.6 g/dL (31.0-37.0); MCV 88.6 fL (80.0-100.0); MEAN PLATELET VOLUME 8.7 fL (7.4-10.4); MONOCYTES 8.7 % (2-11); NEUTROPHIL ABS# 4.33 10x3/uL (1.56-6.13); NEUTROPHILS 64.1 % (40-80); PLATELET COUNT 259 10x3/uL (130-400); RBC 4.02 10x6/uL (4.00-5.40); RDW 13.5 % (11.5-14.5); WBC 6.8 10x3/uL (4.8-10.8)
[2020-11-21] MEDS ORDERED: PROTONIX20 MG PO (08:16)
[2020-11-21 08:32] VITALS: BP 115/64; Ht 162.6 cm; Wt 95.9 kg
--- NOTE | 2020-11-21 10:13 | NUR ---
DC TEACHING COMPLETE, NO ADDITIONAL QUESTIONS. VERBALIZED UNDERSTANDING OF TEACHING. PIV REMOVED, CATHETER INTACT. PATIENT GETTING DRESSED. 1036 DC'D TO POV VIA WC ACCOMPANIED BY THIS NURSE. HAS ALL BELONGINGS AND DC PACKET. FAMILY MEMBER DRIVING.
--- NOTE | 2020-11-21 18:10 | OP ---
PATIENT NAME: YASHIRA WORRELL MEDICAL RECORD: [id number] :60 LOCATION:[facility] ADMISSION DATE: SURGEON: SCOT JUSTIN DO DATE OF OPERATION: 11/21/2020 PROCEDURE: Colonoscopy with polypectomy. INDICATION FOR PROCEDURE: Personal history of polyps, family history positive for colon cancer in the patient's father as well as her brother and sister, personal history of breast cancer, change in bowel habits. SCOPE: Olympus video pediatric colonoscope. MEDICATIONS: Propofol 650 mg IV per anesthesia. WITHDRAWAL TIME: 22 minutes. ESTIMATED BLOOD LOSS: Minimal. COMPLICATIONS: None. FINDINGS AND DESCRIPTION OF PROCEDURE: Informed consent was given. The patient was made comfortable with the above medication. After reaching an adequate level of sedation by slow IV push, the patient was placed on her left side. A digital rectal examination was performed and it was normal. The endoscope was advanced under direct visualization through the rectum to the cecum, confirmed by the presence of the appendiceal orifice and ileocecal valve. The endoscope was slowly withdrawn and the mucosa was carefully examined. The prep quality was poor. There were 4 polyps visualized in the cecum. The largest measured approximately 1.2 cm in size. It was removed using EMR technique with injection of normal saline followed by a hot snare polypectomy. There were 3 other small polyps in the cecum, which were benign-appearing and sessile and ranged in size from 3 to 5 mm in diameter. They were all removed using hot snare. In the ascending colon, there was a benign-appearing sessile polyp, which measured approximately 4-mm in diameter. It was removed using hot snare. In the transverse colon, there was a benign-appearing sessile polyp, which measured approximately 5-mm in diameter. It was removed using a hot snare. In the descending colon, there was a benign-appearing sessile polyp, which measured approximately 1 cm in size. It was removed using a hot snare. Retroflexion was performed in the rectum with visualization of a normal-appearing rectal wall. The endoscope was withdrawn from the patient. The patient tolerated the procedure well and there were no complications. IMPRESSION: 1. Seven polyps as described above, removed using a combination of EMR technique and a hot snare. 2. Poor prep. 3. Otherwise, normal colonoscopy. PLAN AND RECOMMENDATIONS: 1. Discharge home when recovery parameters are met. 2. Follow up biopsy specimen results. 3. High fiber diet. 4. Continue current medications. 5. Recall colonoscopy in 1 year. OPERATIVE REPORT [id number] YASHIRA WORRELL 6. Recommend the patient receive Sutab for her next prep as she did not tolerate the liquid prep. TRANSINT:[id number] Voice Confirmation ID: [id number] DOCUMENT ID: [id number] SCOT JUSTIN DO at 1810 CC: [id number] DICTATION DATE: 11/21/20944 LINK CUTTER: 11/21/20 1057 [facility] 11/21/20 [facility] [address] [place] [address]
== END 2020-11-21 10:36 | disposition home or self-care (01) ==
LOC: D.OPS 07:14
PROVIDERS: Anesthesiology; ATTEND Internal Medicine Gastroenterology
DX: K63.5 Polyp of colon (principal); Z86.010 Personal history of colon polyps; Z85.3 Personal history of malignant neoplasm of breast; Z80.0 Family history of malignant neoplasm of digestive organs; R19.4 Change in bowel habit; I10 Essential (primary) hypertension; K21.9 Gastro-esophageal reflux disease without esophagitis